=== PATIENT | female | born 1985 | race Caucasian/White ===

== ENCOUNTER 2021-07-20 10:25 | Outpatient (CLI) | payer OTHER, SELFPAY ==
--- NOTE | ~2021-07-20 | XR_ITS ---
XR foot LT standing 2V DATE: 07/20/2021 10:50 INDICATION: Abnormal immunological finding and serum TECHNIQUE: Weightbearing AP and lateral views COMPARISON: None FINDINGS: There is mild hallux valgus deformity and mild osteoarthritis at the first metatarsophalang eal joint. No fracture or dislocation, periosteal reaction or bone destruction. No erosive change is noted. IMPRESSION: Mild hallux valgus Mild osteoarthritis of first metatarsal joint Reviewed, dictated and finalized at location A. HEALTH ASSISTANT
--- NOTE | ~2021-07-20 | XR_ITS ---
XR hand BI arthritis min 3V DATE: 07/20/2021 10:50 INDICATION: Abnormal immunological findings TECHNIQUE: 4 views of each hand COMPARISON: None FINDINGS: No fracture or dislocation, periosteal reaction or bone destruction. No erosive change or c hondrocalcinosis. IMPRESSION: No significant abnormality Reviewed, dictated and finalized at location A. K BURNER IMPRESSION: No significant abnormality
--- NOTE | ~2021-07-20 | XR_ITS ---
XR foot RT standing 2V DATE: 07/20/2021 10:50 INDICATION: Abnormal immunological finding in serum, unspecified TECHNIQUE: Weightbearing AP and lateral views COMPARISON: None FINDINGS: No fracture or dislocation, periosteal reaction or bone destruction. No erosive change is n oted. There is joint space narrowing at the first metatarsophalangeal joint suggesting mild osteoarthritis. IMPRESSION: Mild osteoarthritis at first metatarsophalangeal joint Reviewed, dictated and finalized at location A. [facility] HANGER
== END 2021-07-20 10:26 | disposition home or self-care (01) ==
LOC: ANHIMG 10:31
PROVIDERS: Visit Provider Internal Medicine
DX: R76.9 Abnormal immunological finding in serum, unspecified (principal); R76.8 Other specified abnormal immunological findings in serum; R53.83 Other fatigue; M79.10 Myalgia, unspecified site; M20.12 Hallux valgus (acquired), left foot; M19.072 Primary osteoarthritis, left ankle and foot; M19.071 Primary osteoarthritis, right ankle and foot
CPT/HCPCS: 73130; 73620

== ENCOUNTER 2022-03-12 16:21 | Emergency (ER) | payer OTHER, SELFPAY ==
[2022-03-12 16:28] VITALS: BP 148/83; PULSE 90; RESP 14; TEMP 36.7; O2SAT 100
--- NOTE | 2022-03-12 16:36 | ED.URI ---
HPI - URI/Sore Throat General Chief Complaint: Upper Respiratory Infection Stated Complaint: sore throat Time Seen by Provider: 03/12/22 16:36 Source: patient Mode of arrival: ambulatory Limitations: no limitations History of Present Illness HPI Narrative: 36-year-old female presents with complaint of sore throat, headache, body aches, fatigue, low-grade fever for 4 days. Reports that her son had strep. Patient denies Diarrhea. No cough or congestion. Taking [id number] medications to treat her pain. All systems reviewed and negative except as noted above. Related Data Home Medications Medication Instructions Recorded Confirmed norgestimate 0.25 mg-ethinyl 1 tablet PO DAILY 10/28/21 03/12/22 estradiol 35 mcg tablet (Penelope) Allergies Allergy/AdvReac Type Severity Reaction Status Date / Time No Known Allergies Allergy Verified 03/12/22 16:37 Review of Systems Review of Systems: CONSTITUTIONAL: Reports fever, chills, or sweats. EYES: Denies visual changes, redness, or discharge. ENT: Denies rhinorrhea, congestion. Reports sore throat. Denies otalgia. CARDIOVASCULAR: Denies chest pain, palpitations, or edema. RESPIRATORY: Denies cough or dyspnea. GASTROINTESTINAL: Denies abdominal pain, nausea, vomiting, or diarrhea. GENITOURINARY: Denies dysuria or hematuria. SKIN: Denies rash or itching. MUSCULOSKELETAL: Denies back pain, joint pain, or myalgia. NEUROLOGIC: Denies headache, numbness, or weakness. PSYCHIATRIC: Denies anxiety or depression. All other systems reviewed are negative, except as documented in HPI. [facility] Past Medical History Medical History Anxiety Bilateral hand pain Cholecystectomy planned Fatigue Myalgia Rheumatoid factor positive Surgical History Surgical History Previous section Family History Family History Father Alcoholism Heart disease Cerebrovascular accident Mother Alcoholism Grandparent Hypertension Social History Social History Smoking status: Never smoker Alcohol intake: current Comments At time of signature, agree with nursing past medical, surgical, social and family history. There is no relevant family history pertinent to the presenting complaint. Exam Narrative: GENERAL: This is a well-nourished, well-developed patient, in no apparent distress. HEAD: normocephalic, atraumatic. EYES: PERRL. Sclera clear/white. Vision is grossly intact. EARS: External ears normal, auditory canals clear and without drainage, TMs normal without perforation. Hearing grossly intact. NOSE: External nose normal with no obvious nasal discharge, nares without redness, no rhinorrhea. THROAT: Mucous membranes moist. Erythema noted. No tonsillar swelling or exudates. NECK: Neck supple, non-tender without lymphadenopathy, masses or thyromegaly. CARDIOVASCULAR: Regular rate and rhythm without murmurs, gallops, or rubs. RESPIRATORY: Clear to auscultation. Breath sounds equal bilaterally. No wheezes, rales, or rhonchi. SKIN: warm, Dry, intact with no suspicious lesions or rash, good texture and turgor. NEURO: awake, alert, and oriented to person, place and time. There were no obvious focal neurologic abnormalities. EXTREMITIES: No joint tenderness, effusion, or edema noted. Course Course Level of Care: Express Care Visit Vital Signs Vital signs: Vital Signs Temperature 36.7 C 03/12/22 16:28 Pulse Rate 90 03/12/22 16:28 Respiratory Rate 14 03/12/22 16:28 Blood Pressure 148/83 H 03/12/22 16:28 Pulse Oximetry 100 03/12/22 16:28 Oxygen Delivery Room Air 03/12/22 16:28 Temperature 36.7 C 03/12/22 16:28 Pulse Rate 90 03/12/22 16:28 Respiratory Rate 14 03/12/22 16:28 Blood Pressure 148/83 H 03/12/22 16:28 Pulse Oximetry 1
== END 2022-03-12 16:46 | disposition home or self-care (01) ==
PROVIDERS: Emergency Provider Nurse Practitioner Family
DX: J02.9 Acute pharyngitis, unspecified (principal)
CPT/HCPCS: 87081; 87880; 99213; G0463

== ENCOUNTER 2023-01-18 08:13 | Emergency (ER) | payer OTHER, SELFPAY ==
[2023-01-18 08:25] VITALS: BP 138/88; PULSE 77; RESP 16; TEMP 36.5; O2SAT 99
--- NOTE | 2023-01-18 08:33 | ED.URI ---
HPI - URI/Sore Throat General Chief Complaint: Upper Respiratory Infection Stated Complaint: sore throat/cough Time Seen by Provider: 01/18/23 08:34 Source: patient Mode of arrival: ambulatory Limitations: no limitations History of Present Illness HPI Narrative: 37 yo F presents with c/o sore throat, cough, nasal congestion, fatigue for 2 days. Denies N/v/D. Afebrile. Not taking any OTC meds to treat symptoms. Pt's kids sick with similar symptoms. all systems reviewed and negative except as noted above. Related Data Home Medications Medication Instructions Recorded Confirmed norgestimate 0.25 mg-ethinyl 1 tablet PO DAILY 10/28/21 01/18/23 estradiol 35 mcg tablet (Penelope) Allergies Allergy/AdvReac Type Severity Reaction Status Date / Time No Known Allergies Allergy Verified 03/22/22 11:04 Review of Systems Review of Systems: CONSTITUTIONAL: Denies fever, chills, or sweats. Reports fatigue EYES: Denies visual changes, redness, or discharge. ENT: Reports rhinorrhea, congestion, sore throat. Denies otalgia. CARDIOVASCULAR: Denies chest pain, palpitations, or edema. RESPIRATORY: Reports cough. Denies dyspnea. GASTROINTESTINAL: Denies abdominal pain, nausea, vomiting, or diarrhea. GENITOURINARY: Denies dysuria or hematuria. SKIN: Denies rash or itching. MUSCULOSKELETAL: Denies back pain, joint pain, or myalgia. NEUROLOGIC: Denies headache, numbness, or weakness. PSYCHIATRIC: Denies anxiety or depression. All other systems reviewed are negative, except as documented in HPI. [facility] Past Medical History Medical History (Updated 01/18/23 @ 09:08 by Jada Villeda NP) Anxiety Bilateral hand pain Cholecystectomy planned Endometriosis determined by laparoscopy Fatigue IBS (irritable bowel syndrome) Myalgia Rheumatoid factor positive Vitamin D deficiency Surgical History Surgical History Previous section Family History Family History Father Alcoholism Heart disease Cerebrovascular accident Mother Alcoholism Grandparent Hypertension Social History Social History Smoking status: Never smoker Alcohol intake: current Comments At time of signature, agree with nursing past medical, surgical, social and family history. There is no relevant family history pertinent to the presenting complaint. Exam Narrative: GENERAL: This is a well-nourished, well-developed patient, in no apparent distress. HEAD: normocephalic, atraumatic. EYES: PERRL. Sclera clear/white. Vision is grossly intact. EARS: External ears normal, auditory canals clear and without drainage, TMs normal without perforation. Hearing grossly intact. NOSE: External nose normal with clear nasal drainage, mild congestion. No erythema to nares. THROAT: Mucous membranes moist, mild erythema to posterior pharynx without swelling or exudates. NECK: Neck supple, non-tender without lymphadenopathy, masses or thyromegaly. CARDIOVASCULAR: Regular rate and rhythm without murmurs, gallops, or rubs. RESPIRATORY: Clear to auscultation. Breath sounds equal bilaterally. No wheezes, rales, or rhonchi. SKIN: warm, Dry, intact with no suspicious lesions or rash, good texture and turgor. NEURO: awake, alert, and oriented to person, place and time. There were no obvious focal neurologic abnormalities. EXTREMITIES: No joint tenderness, effusion, or edema noted. Course Course Level of Care: Express Care Visit Vital Signs Vital signs: Vital Signs Temperature 36.5 C 01/18/23 08:25 Pulse Rate 77 01/18/23 08:25 Respiratory Rate 16 01/18/23 08:25 Blood Pressure 138/88 01/18/23 08:25 Pulse Oximetry 99 01/18/23 08:25 Oxygen Delivery Room Air 01/18/23 08:25 Temperature 36.5 C 01/18/23 08:25 Pulse Rate 77 01/18/23 08:25 Respiratory Rate
== END 2023-01-18 09:08 | disposition home or self-care (01) ==
PROVIDERS: Emergency Provider Nurse Practitioner Family
DX: J02.0 Streptococcal pharyngitis (principal); N80.9 Endometriosis, unspecified
CPT/HCPCS: 87880; 99213; G0463

== ENCOUNTER 2024-04-19 17:34 | Emergency (ER) | payer OTHER, SELFPAY ==
[2024-04-19 17:45] VITALS: BP 142/71; PULSE 85; RESP 17; TEMP 37.1; O2SAT 100
--- NOTE | 2024-04-19 17:48 | ED.URI ---
HPI - URI/Sore Throat General Chief Complaint: Upper Respiratory Infection Stated Complaint: Cough/Chest Congestion Source: patient Mode of arrival: ambulatory Limitations: no limitations History of Present Illness HPI Narrative: 38 y/o female presented for c/o cough for one week. Endorses cough is getting worse, productive and the mucous is sticking in the throat. Started taking left over amoxicillin 2 days ago. Also taking Robitussin. Denies sob, wheezing, lethargy, n/v/d/f/c. Related Data Home Medications Medication Instructions Recorded Confirmed lisinopril 5 mg tablet 5 mg PO DAILY 04/19/24 04/19/24 Allergies Allergy/AdvReac Type Severity Reaction Status Date / Time No Known Allergies Allergy Verified 03/22/22 11:04 Review of Systems Review of Systems: CONSTITUTIONAL: Denies body aches, fever, chills, or sweats. EYES: Denies visual changes, redness, or discharge. ENT: Denies rhinorrhea, congestion, sore throat, or otalgia. CARDIOVASCULAR: Denies chest pain, palpitations, or edema. RESPIRATORY: Reports cough, denies sob, wheezing. MUSCULOSKELETAL: Denies back pain,chest pain NEUROLOGIC: Denies headache, numbness, tingling, or weakness. PSYCH: Denies depression or anxiety. All systems reviewed & are unremarkable except as noted in HPI and below PMFSH Past Medical History Medical History Anxiety Bilateral hand pain Cholecystectomy planned Endometriosis determined by laparoscopy Fatigue IBS (irritable bowel syndrome) Myalgia Rheumatoid factor positive Vitamin D deficiency Surgical History Surgical History Previous section Family History Family History Father Alcoholism Heart disease Cerebrovascular accident Mother Alcoholism Grandparent Hypertension Social History Social History Smoking status: Never smoker Alcohol intake: current Comments At time of signature, I have reviewed and agree with nursing past medical, surgical, social and family history unless otherwise noted. Please see nursing chart for further information. There is no relevant family history pertinent to the presenting complaint Exam Narrative: GENERAL: Well-appearing, in no acute distress. EYES: EOMI. No redness or drainage. Conjunctivae normal. ENT: Mucous membranes pink and moist. No rhinorrhea. TMs normal bilaterally. Throat normal. Uvula midline. NECK: Normal AROM. Supple. CHEST: No respiratory distress. Lungs clear to all bender. Frequent moist plant operations manager cough. HEART: Regular rate and rhythm. No murmur appreciated. SKIN: Warm, dry, Capillary refill normal. Normal skin turgor. NEURO: Alert and oriented x3. Gait steady. PSYCH: Normal affect. Course Course Emergency Course: Patient is aware of diagnosis, understands and agrees to treatment plan. Anticipatory guidance given. Patient agrees to follow-up as directed and is aware of reasons to seek care at the emergency department. Portions of this record may have been created with voice recognition software Level of Care: Express Care Visit Vital Signs Vital signs: Vital Signs Temperature 98.7 F 04/19/24 17:45 Pulse Rate 85 04/19/24 17:45 Respiratory Rate 17 04/19/24 17:45 Blood Pressure 142/71 H 04/19/24 17:45 Pulse Oximetry 100 04/19/24 17:45 Temperature 98.7 F 04/19/24 17:45 Pulse Rate 85 04/19/24 17:45 Respiratory Rate 17 04/19/24 17:45 Blood Pressure 142/71 H 04/19/24 17:45 Pulse Oximetry 100 04/19/24 17:45 MDM - URI/Sore Throat MDM Narrative Medical decision making narrative: Discussed physical exam findings. Advised supportive measures and signs/symptoms to go to the ER. Pt is appropriate for outpt treatment and f/u. Differential Diagnosis Differential diagnosis: Likely upper respiratory infection, sinusitis, viral infection, bronchitis and other (pneumonia) Discharge Plan Discharge Clinical Impression: Bronchitis Patient Disposition: Home, Self-Care Condition: Stable Instructions: Antibiotic Form, Acute Bronchitis (ED) Additional Instructions: Acute bronchitis can be contagious because it is usually caused by infection with a virus or bacteria. It is usually for a few days but you can be contagious for up to one week. Avoid crowds until you do not have a fever and symptoms are improved Take medication as directed Recommendations: over the counter Cough syrup may cause drowsiness; avoid driving or take it at night time. Tylenol 1000mg every 8 hours as needed for pain Flonase spray and Zyrtec (or Claritin/Fabiola) if you have nasal congestion Symptomatic treatment includes: rest, fluids, and increase humidity of the air at home. Follow up with your primary care provider as needed in 1 week Go to the ER for worsening symptoms or concerns Prescriptions: New azithromycin [Zithromax Z-Oni] 250 mg tablet See Rx Instructions .ROUTE .COMPLEX Qty: 6 0RF Rx Instructions: For 250 mg dose pack: take 500 mg today (day 1), then 250 mg for 4 days (days 2-5) methylprednisolone [Medrol (Oni)] 4 mg tablets,dose pack See Rx Instructions .ROUTE .COMPLEX Qty: 21 0RF Rx Instructions: orally per package directions No Action lisinopril 5 mg tablet 5 mg PO DAILY Follow-up/Referrals: PHYSICIAN NOT ON STAFF,NONSTAFF [Primary Care Provider] - Time of Disposition: 18:02
== END 2024-04-19 18:08 | disposition home or self-care (01) ==
PROVIDERS: Emergency Provider Nurse Practitioner Family
DX: J40 Bronchitis, not specified as acute or chronic (principal); N80.9 Endometriosis, unspecified
CPT/HCPCS: 99213; G0463